=== PATIENT | female | born 1975 | race Caucasian/White ===

== ENCOUNTER 2016-06-24 11:50 | Emergency (ER) | payer BC ==
[~2016-06-24] VITALS: Ht 158.8 cm; Wt 54.8 kg
[2016-06-24 11:53] VITALS: TEMP 36.6; Ht 158.8 cm; Wt 54.8 kg
[2016-06-24] MEDS ORDERED: SODIUM CHLORIDE 0.9% 1000ML 1,000 ML IV STA (12:07)
[2016-06-24 12:26] LABS: BASO % 0.2 %; BASO ABS # 0.01 K/uL (0-0.2); COMPLETE YES; EOS % 0.6 %; HEMATOCRIT 40.7 % (37-47); LYMPH % 49.2 %; LYMPH ABS # 2.45 K/uL (1.2-3.4); MEAN CELL VOLUME 87.9 fL (80-100); MEAN CORPUSCULAR HEMOGLOBIN 29.8 pg (25-34); MEAN CORPUSCULAR HGB CONC 33.9 g/dl (32-36); MEAN PLATELET VOLUME 8.8 fL (7.4-10.4); MONO % 6.2 %; NEUT % 43.8 %; PLATELET COUNT 238 K/uL (130-400); RED BLOOD COUNT 4.63 M/uL (4.2-5.4); WHITE BLOOD COUNT 4.98 K/uL (4.8-10.8)
[2016-06-24 12:48] LABS: BUN/CREATININE RATIO 12.9 (10-20); CREATININE 0.78 mg/dl (0.60-1.20); POTASSIUM 3.7 mmol/L (3.5-5.1)
[2016-06-24 13:34] LABS: URINE APPEARANCE CLEAR (CLEAR); URINE BILIRUBIN NEG (NEG); URINE COLOR YELLOW; URINE NITRITE NEG (NEG); URINE SPECIFIC GRAVITY 1.005 (1.000-1.030); UROBILINOGEN NEG (NEG); ZZUR CULT IF INDIC CLEAN CATCH NO
[2016-06-24 13:38] LABS: MANUAL MICROSCOPIC REQUIRED? NO; REVIEW REQ? NO
--- NOTE | 2016-06-24 14:55 | DIAGNOSTIC IMAGING REPORT ---
ABDOMEN AND PELVIS CT WITH IV AND ORAL CONTRAST CT DOSE: 256.51 mGy.cm HISTORY: Pain. Nausea. RLA abd pain TECHNIQUE: Multiaxial CT images of the abdomen and pelvis were performed following the use of intravenous and oral contrast. COMPARISON STUDY: None. FINDINGS: The lung bases are clear. The liver, spleen, gallbladder, pancreas, kidneys, and adrenal glands are within normal limits. No bowel wall thickening or obstruction. The pelvic organs are unremarkable. No suspicious lytic or blastic osseous lesions. There is a 2 cm thick-walled right ovarian cyst. The appendix is normal. No free fluid within the pelvic cul-de-sac. Uterus is anteflexed. IMPRESSION: 1. Normal appendix. 2. 2.4 cm thick-walled right ovarian cyst. 3. Study is otherwise negative. Electronically signed by: Bubba Lopez M.D. 06/24/2016 2:53 PM Dictated Date/Time: 06/24/2016 2:49 PM
[2016-06-24] MEDS ORDERED: OPTIRAY 320 IV PRN (15:00)
[2016-06-24 15:16] VITALS: BP 108/74; PULSE 71; O2SAT 99
--- NOTE | 2016-06-24 15:28 | EMERGENCY ROOM VISIT NOTE ---
History Report prepared by Rafa: Aparna Lawson Under the Supervision of: Dr. Chester Wright D.O. First contact with patient: 11:55 Chief Complaint: ABDOMINAL PAIN Stated Complaint: RIGHT ABD. PAIN History of Present Illness The patient is a 40 year old female who presents to the Emergency Room with complaints of intermittent RLQ abdominal pain starting a few weeks ago. The pain has worsened in the last 4 days. The pain sometimes radiates to her side and back. She was at [facility] earlier today and was sent to the ED. She has a history of PCOS and had an US today. [facility] felt that the cysts that were present were not large enough to cause her pain. The pain from her PCOS is usually present on the left side. She has some nausea. She denies any vaginal bleeding, discharge, vomiting or diarrhea. Her last bowel movement was today and normal. She denies any chance of . She has had a in the past. She denies any other abdominal surgeries. Source of History: patient Onset: few weeks ago Position: abdomen (RLQ) Timing: intermittent, worsening Associated Symptoms: + nausea, No diarrhea, No vomiting Note: Pt denies changes in bowel movements, vaginal bleeding or discharge. Review of Systems See HPI for pertinent positives & negatives. A total of 10 systems reviewed and were otherwise negative. Past Medical & Surgical Medical Problems: (1) PCOS (polycystic ovarian syndrome) Surgical Problems: (1) History of Family History No pertinent family history stated. Social History Smoking Status: Never Smoker Marital Status: Housing Status: lives with family Occupation Status: employed Current/Historical Medications No Active Prescriptions or Reported Meds Allergies Coded Allergies: Amoxicillin (Verified Allergy, Intermediate, HIVES, 06/24/16) Physical Exam Vital Signs Date Time Temp Pulse Resp B/P Pulse Ox O2 Delivery O2 Flow Rate FiO2 06/24/16 15:16 71 16 108/74 99 Room Air 06/24/16 13:53 66 16 97/65 100 06/24/16 11:53 36.6 81 20 110/74 100 Room Air Physical Exam GENERAL: Sitting up in bed, alert, well appearing, well nourished, no distress, non-toxic EYE EXAM: normal conjunctiva OROPHARYNX: no exudate, no erythema, lips, buccal mucosa, and tongue normal and mucous membranes are moist NECK: supple, no nuchal rigidity, no adenopathy, non-tender LUNGS: Clear to auscultation. Normal chest wall mechanics HEART: no murmurs, S1 normal and S2 normal ABDOMEN: abdomen soft, normo-active bowel sounds, no masses. Tenderness to palpation in the RLQ, no rebound or guarding. BACK: Back is symmetrical on inspection and there is no deformity, no midline tenderness, no CVA tenderness. : Deferred, performed earlier by gynecology. SKIN: no rashes and no bruising UPPER EXTREMITIES: upper extremities are grossly normal. LOWER EXTREMITIES: No pitting edema. NEURO EXAM: Normal sensorium, cranial nerves II-XII grossly intact, normal speech, no gross weakness of arms, no gross weakness of legs. Medical Decision & Procedures ER Provider Diagnostic Interpretation: Radiology results as stated below per my review and the radiologist's interpretation: ABDOMEN AND PELVIS CT WITH IV AND ORAL CONTRAST CT DOSE: 256.51 mGy.cm HISTORY: Pain. Nausea. RLA abd pain TECHNIQUE: Multiaxial CT images of the abdomen and pelvis were performed following the use of intravenous and oral contrast. COMPARISON STUDY: None. FINDINGS: The lung bases are clear. The liver, spleen, gallbladder, pancreas, kidneys, and adrenal glands are within normal limits. No bowel wall thickening or obstruction. The pelvic organs are unremarkable. No suspicious lytic or blastic osseous lesions. There is a 2 cm thick-walled right ovarian cyst. The appendix is normal. No free fluid within the pelvic cul-de-sac. Uterus is anteflexed. IMPRESSION: 1. Normal appendix. 2. 2.4 cm thick-walled right ovarian cyst. 3. Study is otherwise negative. Electronically signed by: Bubba Lopez M.D. 06/24/2016 2:53 PM Dictated Date/Time: 06/24/2016 2:49 PM Laboratory Results 06/24/16 12:15 Red Blood Count 4.63, Mean Corpuscular Volume 87.9, Mean Corpuscular Hemoglobin 29.8, Mean Corpuscular Hemoglobin Concent 33.9, Mean Platelet Volume 8.8, Neutrophils (%) (Auto) 43.8, Lymphocytes (%) (Auto) 49.2, Monocytes (%) (Auto) 6.2, Eosinophils (%) (Auto) 0.6, Basophils (%) (Auto) 0.2, Neutrophils # (Auto) 2.18, Lymphocytes # (Auto) 2.45, Monocytes # (Auto) 0.31, Eosinophils # (Auto) 0.03, Basophils # (Auto) 0.01 06/24/16 12:15 Test 06/24/16 12:15 06/24/16 13:20 White Blood Count 4.98 K/uL (4.8-10.8) Red Blood Count 4.63 M/uL (4.2-5.4) Hemoglobin 13.8 g/dL (12.0-16.0) Hematocrit 40.7 % (37-47) Mean Corpuscular Volume 87.9 fL (80-100) Mean Corpuscular Hemoglobin 29.8 pg (25-34) Mean Corpuscular Hemoglobin Concent 33.9 g/dl (32-36) Platelet Count 238 K/uL (130-400) Mean Platelet Volume 8.8 fL (7.4-10.4) Neutrophils (%) (Auto) 43.8 % Lymphocytes (%) (Auto) 49.2 % Monocytes (%) (Auto) 6.2 % Eosinophils (%) (Auto) 0.6 % Basophils (%) (Auto) 0.2 % Neutrophils # (Auto) 2.18 K/uL (1.4-6.5) Lymphocytes # (Auto) 2.45 K/uL (1.2-3.4) Monocytes # (Auto) 0.31 K/uL (0.11-0.59) Eosinophils # (Auto) 0.03 K/uL (0-0.5) Basophils # (Auto) 0.01 K/uL (0-0.2) RDW Standard Deviation 40.2 fL (36.4-46.3) RDW Coefficient of Variation 12.5 % (11.5-14.5) Immature Granulocyte % (Auto) 0.0 % Immature Granulocyte # (Auto) 0.00 K/uL (0.00-0.02) Anion Gap 8.0 mmol/L (3-11) Est Creatinine Clear Calc Drug Dose 79.2 ml/min Estimated GFR () 111.8 Estimated GFR (Non- 96.4 BUN/Creatinine Ratio 12.9 (10-20) Calcium Level 9.0 mg/dl (8.5-10.1) Total Bilirubin 0.6 mg/dl (0.2-1) Direct Bilirubin 0.1 mg/dl (0-0.2) Aspartate Amino Transf (AST/SGOT) 15 U/L (15-37) Alanine Aminotransferase (ALT/SGPT) 20 U/L (12-78) Alkaline Phosphatase 42 U/L (45-117) Total Protein 7.2 gm/dl (6.4-8.2) Albumin 4.2 gm/dl (3.4-5.0) Lipase 165 U/L (73-393) Urine Color YELLOW Urine Appearance CLEAR (CLEAR) Urine pH 7.0 (4.5-7.5) Urine Specific [place] 1.005 (1.000-1.030) Urine Protein NEG (NEG) Urine Glucose (UA) NEG (NEG) Urine Ketones NEG (NEG) Urine Occult Blood NEG (NEG) Urine Nitrite NEG (NEG) Urine Bilirubin NEG (NEG) Urine Urobilinogen NEG (NEG) Urine Leukocyte Esterase NEG (NEG) Urine WBC (Auto) 0 /hpf (0-5) Urine RBC (Auto) 0-4 /hpf (0-4) Urine Hyaline Casts (Auto) 0 /lpf (0-5) Urine Epithelial Cells (Auto) 10-20 /lpf (0-5) Urine Bacteria (Auto) NEG (NEG) Urine Test NEG (NEG) Laboratory results per my review. ED Course ED COURSE: Vital signs were reviewed and showed normal vitals. The patients medical record was reviewed The above diagnostic studies were performed and reviewed. ED treatments and interventions as stated above. 1158: The patient was evaluated in room C6. A complete history and physical examination was performed. 1207: NSS 1000 ml @ 999 mls/hr IV (declined). 1318: The ultrasound report from her [facility] visit earlier today shows a 1.4 x 2.0 x 2.2 cm cyst in her right ovary. The left ovary is normal. 1341: I reevaluated the patient. She is doing well. 1459: Upon reevaluation, the patient is resting comfortably. I discussed my findings with the patient and she understands and agrees with the treatment plan. Based on the patients age, coexisting illnesses, exam and lab findings the decision to treat as an outpatient was made. The patient remained stable while under my care. The patient appeared well at the time of discharge. Medical Decision Differential diagnoses includes but is not limited to gastritis, peptic ulcer disease, GERD, gallbladder disease, pancreatitis, small bowel obstruction, acute coronary syndrome, pericarditis, ischemic bowel, irritable bowel disease, irritable bowel syndrome, appendicitis, diverticulitis, malignancy, hernia, urinary tract infection, torsion, /ectopic (if female), perforation, trauma, infectious. Patient is a 40-year-old female who presents the ER for PCOS with right lower quadrant abdominal pain which has been intermittent for the past several weeks and worsened over the past 4 days. She notes that this feels like her previous ovarian cysts. She was seen and evaluated by gynecology for the right lower quadrant pain and had 2 separate ultrasounds performed of her ovaries which were unremarkable per patient. She is sent over here to be evaluated for possible appendicitis. CBC along with BMP, LFTs and lipase were unremarkable. UA was negative. Previous was negative. CT of the abdomen and pelvis shows a normal appendix with a 2 cm right ovarian cyst. I do feel this is consistent with her pain. She declined any pain meds. Deferred pelvic as it was just performed by gynecology. Discussed with Pt concerning signs and symptoms to watch out for. Pt was instructed to follow up with their PCP and discussed with the patient their option to return to the ED at anytime for persistent or worsening symptoms. The appropriate anticipatory guidance and out-patient management, including indications for return to the emergency department, were explained at length to the patient and understood. Impression Primary Impression: Ovarian cyst Additional Impression: Abdominal pain Scribe Attestation The scribe's documentation has been prepared under my direction and personally reviewed by me in its entirety. I confirm that the note above accurately reflects all work, treatment, procedures, and medical decision making performed by me. Departure Information Dispostion Home / Self-Care Prescriptions No Active Prescriptions or Reported Meds Referrals No Doctor, Assigned (PCP) Marisol Luna D.O. Forms Call Back Authorization, HOME CARE DOCUMENTATION FORM, IMPORTANT VISIT INFORMATION Patient Instructions ED Cyst Ovarian, My [facility] Additional Instructions Please follow up with your primary care doctor with in the next 24 hours. Any worsening of your symptoms, please return to the ED immediately. This includes fevers greater than 100.4, worsening pain, persistent nausea/vomiting, vaginal bleeding or vaginal discharge, or any other concerning signs or symptoms from your standpoint. Please take Motrin or Tylenol as needed for pain. Problem Qualifiers Primary Impression: Ovarian cyst Laterality: right Qualified Codes: N83.201 - Unspecified ovarian cyst, right side Additional Impression: Abdominal pain Abdominal location: unspecified location Qualified Codes: R10.9 - Unspecified abdominal pain
== END 2016-06-24 15:17 | disposition home or self-care (01) ==
LOC: C.EDB 11:51 → C.EDC 15:17
DX: N83.201 Unspecified ovarian cyst, right side (principal); R10.9 Unspecified abdominal pain; E28.2 Polycystic ovarian syndrome

== ENCOUNTER → 2016-07-28 | Outpatient (CLI) | payer BC | END | disposition home or self-care (01) | LOC: C.PAPS 16:15 | PROVIDERS: ATTEND Obstetrics & Gynecology | DX: Z01.419 Encounter for gynecological examination (general) (routine) without abnormal findings (principal) ==

== ENCOUNTER → 2016-09-19 | Outpatient (CLI) | payer BC ==
--- NOTE | 2016-09-19 15:06 | DIAGNOSTIC IMAGING REPORT ---
RIGHT WRIST MIN 3 VIEWS ROUTINE CLINICAL HISTORY: Right wrist pain. COMPARISON: None. DISCUSSION: No fractures or dislocations are visualized. There are no erosive or destructive changes. IMPRESSION: Unremarkable conventional radiographic evaluation of the right wrist. Electronically signed by: Cabrera Reynoso M.D. 09/19/2016 3:04 PM Dictated Date/Time: 09/19/2016 3:04 PM
== END | disposition home or self-care (01) ==
LOC: C.RDSM 15:00
PROVIDERS: ATTEND Physician Assistant
DX: M25.531 Pain in right wrist (principal)

== ENCOUNTER → 2016-10-15 | Outpatient (CLI) | payer BC ==
--- NOTE | 2016-10-15 09:21 | DIAGNOSTIC IMAGING REPORT ---
RIGHT WRIST MRI WITHOUT INTRAVENOUS CONTRAST HISTORY: Right wrist pain. RIGHT WRIST TENOSYNOVITIS Right TECHNIQUE: Multiplanar multisequence MRI of the right wrist was performed without intravenous contrast. COMPARISON STUDY: Right wrist 09/19/2016. FINDINGS: No fracture or dislocation within the right wrist. There is normal marrow signal intensity seen throughout the visualized osseous structures. The scapholunate and lunotriquetral ligament are intact. Best seen on coronal image 33 of 56 there appears to be a tiny defect within the body of the triangular fibrocartilage. This consistent with a tiny partial tear. This measures approximately 1.5 mm. There is also slight thickening and increased signal within the extensor carpi ulnaris tendon at the level of the ulnar styloid. This is best seen on axial image 13 and coronal image 14. This consistent with a mild tendinopathy. There is no abnormal fluid collections within the wrist. The volar tendons and median nerve are intact. IMPRESSION: 1. Mild extensor carpi ulnaris tendinopathy. 2. Tiny partial tear within the triangular fibrocartilage. Electronically signed by: Bronson Mendoza M.D. 10/15/2016 9:20 AM Dictated Date/Time: 10/15/2016 8:55 AM
== END | disposition home or self-care (01) ==
LOC: C.MRI 07:41
PROVIDERS: ATTEND Physician Assistant
DX: M65.841 Other synovitis and tenosynovitis, right hand (principal); S63.591A Other specified sprain of right wrist, initial encounter; X58.XXXA Exposure to other specified factors, initial encounter

== ENCOUNTER → 2017-02-03 | Outpatient (CLI) | payer BC ==
--- NOTE | 2017-02-03 08:29 | DIAGNOSTIC IMAGING REPORT ---
EXAMINATION: RENAL ULTRASOUND CLINICAL HISTORY: N39.41 Urge [id number] COMPARISON STUDY: CT scan dated 06/24/2016 FINDINGS: The right kidney measures 10.9 cm. The left kidney measures 9.5 cm. There is no evidence of hydronephrosis. There are no renal masses. No bladder abnormalities are visualized. Bilateral ureteral jets were visualized. IMPRESSION : Normal renal ultrasound Electronically signed by: Cabrera Reynoso M.D. 02/03/2017 8:27 AM Dictated Date/Time: 02/03/2017 8:27 AM
== END | disposition home or self-care (01) ==
LOC: C.ULTR 07:56
PROVIDERS: ATTEND Urology
DX: N39.41 Urge incontinence (principal)

== ENCOUNTER → 2017-03-20 | Outpatient (CLI) | payer OTHER ==
--- NOTE | 2017-03-20 14:37 | MAMMOGRAPHY REPORT ---
BILATERAL DIGITAL SCREENING MAMMOGRAM TOMOSYNTHESIS WITH CAD: 03/20/2017 CLINICAL HISTORY: Routine screening. The patient reported to the technologist that she still feels a small lump in the right axillary region that was worked up last year and feels a questionable second area above it. TECHNIQUE: Breast tomosynthesis in addition to standard 2D mammography was performed. Current study was also evaluated with a Computer Aided Detection (CAD) system. COMPARISON: Comparison is made to exams dated: 02/05/2016 ultrasound, 02/05/2016 mammogram - [facility], 03/27/2015 mammogram, and 06/16/2013 mammogram. BREAST COMPOSITION: The tissue of both breasts is extremely dense, which lowers the sensitivity of m ammography. FINDINGS: No suspicious masses, calcifications, or areas of architectural distortion are noted in ei ther breast. There has been no significant interval change compared to prior exams. Scattered bilater al benign-appearing calcifications are not significantly changed. Small 4 mm intramammary lymph node in the right upper outer quadrant/axillary tail region is stable compared to prior exams. IMPRESSION: ACR BI-RADS CATEGORY 2: BENIGN There is no mammographic evidence of malignancy. A 1 year screening mammogram is recommended. Also r ecommend clinical follow-up for the palpable right breast lumps described by the patient; if there is a new or increasing lump, then further evaluation with ultrasound should be performed. The patient will receive written notification of the results. Approximately 10% of breast cancers are not detected with mammography. A negative mammographic report should not delay biopsy if a clinically suggestive mass is present. Gladys Phillips M.D. ah/:03/20/2017 08:39:38 [employer]: Brian Herrmann RT(R)(M), [facility] letter sent: Normal 1/2 BI-RADS Code: ACR BI-RADS Category 2: Benign
== END | disposition home or self-care (01) ==
LOC: C.MAMM 07:59
PROVIDERS: ATTEND Obstetrics & Gynecology
DX: Z12.31 Encounter for screening mammogram for malignant neoplasm of breast (principal)

== ENCOUNTER → 2017-10-19 | Outpatient (CLI) | payer OTHER ==
--- NOTE | 2017-10-19 14:21 | DIAGNOSTIC IMAGING REPORT ---
FLUOROSCOPIC GUIDED RIGHT WRIST ARTHROGRAM FLUOROSCOPY TIME: 3 seconds. Single fluoroscopic spot image of the right wrist HISTORY: Right wrist pain. PROCEDURE: After obtaining written informed consent, the patient was placed supine on the fluoroscopy table. A suitable site for needle insertion was marked using fluoroscopic guidance. The right wrist was prepped and draped in the usual sterile fashion. 1% lidocaine was used for skin, subcutaneous and deep soft tissue anesthesia. Under intermittent fluoroscopic guidance, a 22 gauge needle was inserted into the right radiocarpal joint. A total of 5 cc of one-to-one mixture of dilute Gadavist and Optiray 300 were injected. The needle was then removed. There were no apparent complications. The patient was transported to MR for further imaging. IMPRESSION: Fluoroscopic-guided right wrist arthrogram without immediate complication. Total injected volume was 5 cc. MR portion of the examination will be dictated separately. Electronically signed by: Bronson Mendoza M.D. 10/19/2017 2:19 PM Dictated Date/Time: 10/19/2017 2:18 PM
--- NOTE | 2017-10-19 15:02 | DIAGNOSTIC IMAGING REPORT ---
MR ARTHROGRAM OF THE RIGHT WRIST CLINICAL HISTORY: Chronic right wrist pain. COMPARISON STUDY: MRI of the right wrist dated 10/15/2016. Radiographs of the right wrist dated 09/19/2016. TECHNIQUE: MRI of the right wrist is performed following the intra-articular administration of gadolinium contrast. Images are reviewed in the axial, sagittal, and coronal planes. Note that interpretation is suboptimal without current plain film correlate. FINDINGS: Normal marrow signal intensity is preserved throughout the visualized bony structures. There is no MRI evidence of fracture. Mild cystic degenerative change is seen in the lunate. Joint space is well distended with intra-articular contrast. Again seen is thickening and increased signal within the extensor carpi ulnaris tendon at the level of the ulnar styloid. This is consistent with tendinopathy. The remaining visualized flexor and extensor tendons appear intact. There is contrast present within the distal radioulnar joint. The radial attachment of the triangular fibrocartilage is preserved. There is progressive tearing of the ulnar attachment of the triangular fibrocartilage as compared to the 10/15/2016 examination. IMPRESSION: 1. There is progressive tearing at the ulnar attachment of the triangle fibrocartilage as compared to the 10/15/2016 examination. 2. Fluid and contrast are present in the distal radioulnar joint. 3. Again seen is tendinopathy of the extensor carpi ulnaris tendon. Dictated: 10/19/2017 2:32 PM Transcribed: 10/19/2017 3:02 PM [facility] Electronically signed by: Arturo Wilson M.D. 10/20/2017 8:27 AM Dictated Date/Time: 10/19/2017 2:32 PM
== END | disposition home or self-care (01) ==
LOC: C.MRIBC 12:46
PROVIDERS: ATTEND Physical Medicine & Rehabilitation Sports Medicine
DX: M12.531 Traumatic arthropathy, right wrist (principal)